=== PATIENT | female | born 1960 | race Caucasian/White ===

== ENCOUNTER 2020-08-15 06:46 | Outpatient (CLI) | payer OTHER, SELFPAY ==
--- NOTE | 2020-08-15 | USCV_ITS ---
Ary Jernigan Age: 59 Gender: F : 1960 Exam Date: 08/15/2020 09:48 Ordering Phys: Albaro Hsu MD Technologist: Donna Krueger [place] [facility] [place]: SHORTNESS OF BREATH BP: 140 / 90 HR: 75 Rhythm: Sinus Technical Quality: Adequate MEASUREMENTS (Male / Female) Normal Values 2D ECHO LV Diastolic Diameter PLAX 3.5 cm 4.2 - 5.9 / 3.9 - 5.3 cm LV Systolic Diameter PLAX 2.4 cm IVS Diastolic Thickness 1.3 cm 0.6 - 1.0 / 0.6 - 0.9 cm IVS Systolic Thickness 1.5 cm LVPW Diastolic Thickness 0.9 cm 0.6 - 1.0 / 0.6 - 0.9 cm LVPW Systolic Thickness 1.3 cm RV Chamber Size 2.3 cm LVOT Diameter 2.0 cm LV Ejection Fraction 2D Teich 63.2 % LV Ejection Fraction MOD 2C 65.2 % LV Ejection Fraction 2C AL 66.5 % LA Diameter 3.0 cm LA Width 2.3 cm LA Height 4.1 cm RA Width 2.8 cm RA Height 3.6 cm Aorta at Sinotubular Diameter 2.6 cm M-MODE LV Diastolic Diameter MM 3.9 cm 4.2 - 5.9 / 3.9 - 5.3 cm LV Systolic Diameter MM 2.6 cm LV Ejection Fraction MM Teich 61.9 % IVS Diastolic Thickness MM 1.3 cm 0.6 - 1.0 / 0.6 - 0.9 cm IVS Systolic Thickness MM 1.5 cm LVPW Diastolic Thickness MM 0.6 cm 0.6 - 1.0 / 0.6 - 0.9 cm LVPW Systolic Thickness MM 1.3 cm Aortic Annulus Diameter 2.5 cm LA Ao Ratio MM 1.1 MV E Point Septal Separation 0.4 cm DOPPLER AV Peak Velocity 129.0 cm/s LVOT Peak Velocity 90.0 cm/s AV Area Cont Eq vti 2.2 cm squared AV Area Cont Eq pk 2.2 cm squared MV Area PHT 5.0 cm squared Mitral E to A Ratio 0.8 MV E' Velocity 37.0 cm/s Mitral E to MV E' Ratio 11.2 Mitral E to LV E' Lateral Ratio 9.8 Mitral E to LV E' Septal Ratio 13.5 TR Peak Velocity 214.0 cm/s TR Peak Gradient 18.3 mmHg TV Peak E Velocity 43.0 cm/s Right Atrial Pressure 3.0 mmHg Pulmonary Artery Systolic Pressu 21.3 mmHg PV Peak Velocity 104.0 cm/s RV Acceleration Time 0.1 s RV Ejection Time 0.3 s RV AcT/ET 0.4 FINDINGS Left Ventricle Normal left ventricular size and systolic function, EF 64 %. Grade I/IV diastolic dysfunction (abnormal relaxation filling pattern), normal to mildly elevated filling pressures. No regional wall motion abnormalities. Right Ventricle The right ventricle is normal in size and function. Right Atrium The right atrium is normal in size. Left Atrium The left atrium is normal in size. Mitral Valve No gross abnormalities noted Aortic Valve No gross abnormalities noted Tricuspid Valve Trace tricuspid valve regurgitation. Pulmonic Valve Pulmonic valve not well visualized. Pericardium Normal pericardium without effusion. Aorta Normal ascending aorta dimension. CONCLUSIONS Normal left ventricular size and systolic function, EF 64 %. Grade I/IV diastolic dysfunction (abnormal relaxation filling pattern), normal to mildly elevated filling pressures. No regional wall motion abnormalities. Trace tricuspid valve regurgitation. There is no pericardial effusion. There are no intracardiac masses. No previous study is available for comparison. Dr Gregory Mendes MD FAC (Electronically Signed) Final Date: 15 August 2020 19:02 S
[2020-08-15 07:04] VITALS: BMI 28.3
--- NOTE | 2020-08-15 07:07 | NMCV_ITS ---
NM stephanie perf SPECT r/s* [id number] Ary Jernigan Age: 59 Gender: F : 1960 Exam Date: 08/15/2020 08:00 Ordering Phys: Albaro Hsu MD Technologist: YESICA Fam Exam Location: [facility] Indications: SHORTNESS OF BREATH STRESS TEST Please see separate stress test report in [facility] for full findings IMAGE PROTOCOL Rest/Stress 1 Lexiscan Day Radiopharmaceutical Dose (mCi) Administration Site Administered by Rest: Tc-99m 10.8 IV YESICA Clark Sestamibi Stress:Tc-99m 32.5 IV YESICA Fam Sestamifede Rest: 15-Aug-2020 60 Discovery 630 Stress: 15-Aug-2020 30 Discovery 630 0.4mg Lexiscan. Images obtained in supine and prone position. SPECT RESULTS Technical Quality: Excellent Raw Data Analysis: Normal Image Corrections: No attenuation or motion correction applied Summed Stress Score: 3 Summed Rest Score: 0 Summed Difference Score: 3 PERFUSION FINDINGS Small area of fixed apical perfusion defect may be an artifact. Overall perfusion scan appeared to be normal. FUNCTIONAL RESULTS (calculated via Gated SPECT) Stress Image LV EF (%): 78 Stress EDV (mL):60 TID: 0.83 Stress ESV (mL):13 Rest Image LV EF (%): 78 FUNCTIONAL FINDINGS: There is normal left ventricular systolic function. IMPRESSIONS Myocardial perfusion imaging is normal. EKG segment will be documented separately. Vielka Tapia MD (Electronically Signed) Final Date: 15 August 2020 18:48 S
--- NOTE | 2020-08-15 07:07 | ECG_ITS ---
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 The perfusion scan will be documented separately. DATA: Baseline heart rate was 84 beats per minute. Baseline blood pressure was 194/117 millimeters of mercury. Target heart rate was 160. Maximum heart rate achieved was 108. which was 67 % of the predicted target heart rate. Maximum blood pressure was 194/117 millimeters of mercury. The reason for ending the test was completion of the protocol. The patient did not experience any symptoms. ELECTROCARDIOGRAM: BASELINE: Sinus rhythm. Normal axis. Possible old anterior wall myocardial infarction, otherwise no ST-T changes suggestive of ischemia noted. No arrhythmia noted. EXERCISE: After Lexiscan injection, no ST-T changes suggestive of ischemic noted. No arrhythmia noted. CONCLUSION: Please note due to baseline abnormality of the EKG specificity and sensitivity of the EKG portion of LexiScan MIBI stress test will be low 1. EKG not suggestive of ischemia 2. Lexiscan injection unremarkable. Blood pressure response was hypertensive 3. Perfusion scan will be documented separately. Electronically Signed On 08-15-2020 18:45:05 CDT by ISA NICOLE [id number]
[2020-08-15] MEDS: regadenoson 0.4 Mg/5 ml Syringe IVP (08:33)
[2020-08-15 08:52] VITALS: BP 169/108; PULSE 94
== END 2020-08-15 06:47 | disposition home or self-care (01) ==
PROVIDERS: PCP Family Medicine; Visit Provider Internal Medicine Critical Care Medicine
DX: R07.9 Chest pain, unspecified (principal); R06.02 Shortness of breath
CPT/HCPCS: 78452; 93017; 93306; A9500; J2785

== ENCOUNTER 2020-08-18 09:50 | Outpatient (CLI) | payer OTHER, SELFPAY ==
--- NOTE | 2020-08-18 09:57 | XR_ITS ---
WS: [id number] Chest 2 views, 08/18/2020 Clinical Data: Shortness of breath Comparison: None. Findings: No nodules, masses or effusions are seen. The heart is normal. The pulmonary vascularity is not increased. No pneumonia or pneumothorax is seen. The diaphragms are flattened. There are clips i n the right upper quadrant from a cholecystectomy. XR/XR chest 2V* [id number] Impression: Hyperinflation.
[2020-08-21 15:48] LABS: Alternaria Alternata (M6) Ige <0.10 kU/L; Alternaria Class 0; Bermuda Class 0; Bermuda Grass (G2) Ige <0.10 kU/L; Cat Dander (E1) Ige <0.10 kU/L; Cat Dander Class 0; D. Farinae Class 0; Dermatophagoides Class 0; Dermatophagoides Farinae (D2) <0.10 kU/L; Dermatophagoides Pteronyssinus <0.10 kU/L; Dog Dander (E5) Ige <0.10 kU/L; Dog Dander Class 0; Elm (T8) Ige <0.10 kU/L; Elm Class 0; English Plantain (W9) Ige <0.10 kU/L; English Plantain Class 0; House Dust (Greer) (H1) Ige <0.10 kU/L; House Dust (Hollister- Stier) <0.10 kU/L; House Dust Class 0; Immunoglobulin E 86 kU/L (<OR=114); Immunoglobulin E 94 kU/L (<OR=114); Johnson Grass (G10) Ige <0.10 kU/L; Johnson Grass Cl 0; June Grass Class 0; June Grass(Kentucky Blue) (G8) <0.10 kU/L; Lamb'S Quarters (Goose Foot) <0.10 kU/L; Lamb'S Quarters Class 0; Maple (Box Elder) (T1) Ige <0.10 kU/L; Maple Class 0; Meadow Fescue (G4) Ige <0.10 kU/L; Meadow Fescue Class 0; Mucor Racemosus Class 0; Oak (T7) Ige <0.10 kU/L; Oak Class 0; Orchard Grass (Cocksfoot) (G3) <0.10 kU/L; Penicillium Class 0; Penicillium Notatum (M1) Ige <0.10 kU/L; Perennial Rye Grass (G5) Ige <0.10 kU/L; Perennial Rye Grass Class 0; Ragweeed Class 1; Rough Marsh Elder (W16) Ige <0.10 kU/L; Rough Marsh Elder Class 0; Sweet Vernal Class 0; Sweet Vernal Grass (G1) Ige <0.10 kU/L; Timothy Grass (G6) Ige <0.10 kU/L; Timothy Grass Class 0
[2020-08-22 22:23] LABS: Aspergillus Fumigatus, Igg Ab, 38.4 mg/L (<=102)
== END 2020-08-18 09:51 | disposition home or self-care (01) ==
PROVIDERS: PCP Family Medicine; Visit Provider Internal Medicine Critical Care Medicine
DX: R06.02 Shortness of breath (principal)
CPT/HCPCS: 71046; 82785; 86003

== ENCOUNTER 2021-04-25 09:15 | Outpatient (CLI) | payer OTHER, SELFPAY ==
--- NOTE | 2021-04-25 09:30 | XR_ITS ---
WS: [id number] PROCEDURE: XR chest 2V* [id number] CLINICAL INFORMATION: Shortness of breath COMPARISON: 08/14 FINDINGS: Small esophageal hiatal hernia. Heart: Mild cardiomegaly. Lungs: Hyperinflation. No acute pulmonary infiltrates. No focal pneumonia or pleural fluid. Bones: Normal visualized bony structures. Cholecystectomy clips. XR/XR chest 2V* [id number] IMPRESSION: 1. Hyperinflation. No acute pulmonary infiltrates. 2. Small esophageal hiatal hernia.
[2021-04-25 10:35] LABS: Basophils # 0.1 10^3/uL (0.0-0.1); Basophils % 1.1 %; Eosinophils # 0.2 10^3/uL (0.0-0.8); Eosinophils % 2.4 %; Lymphocytes # 1.5 10^3/uL (0.8-4.8); Lymphocytes % 17.8 %; Mean Corpuscular HGB Conc 26.5 g/dL (30.0-36.0); Mean Corpuscular Hemoglobin 16.4 pg (28.0-34.0); Mean Platelet Volume 9.8 fL (7.4-10.4); Monocytes # 0.8 10^3/uL (0.2-0.9); Monocytes % 9.4 %; Neutrophils % 68.9 %; Nucleated Red Blood Cells % 0 %; Platelet Count 540 10^3/cmm (130-400); Red Blood Count 3.05 10^6/uL (4.1-5.3); Red Cell Distribution Width 18.2 % (12.1-15.1); White Blood Count 8.4 10^3/uL (4.0-10.0)
[2021-04-25 10:49] LABS: Hematocrit 18.9 % (37.0-47.0)
[2021-04-25 11:27] LABS: Alanine Aminotransferase 13 U/L (0-33); Albumin Level 4.3 g/dL (3.5-5.2); Alkaline Phosphatase 96 IU/L (35-105); Anion Gap 16.8 (5-19); Aspartate Amino Transferase 18 U/L (0-32); Blood Urea Nitrogen 11 mg/dL (8-23); Calcium 9.3 mg/dL (8.5-10.5); Carbon Dioxide 22 mmol/L (22-29); Chloride 105 mmol/L (98-107); Globulin 3.2 g/dL (1.3-4.6); Glomerular Filtration Rate 85.1 mL/min (90-130); Glucose 122 mg/dL (65-115); Osmolality Calculated 291 mOsm/kg (285-295); Potassium 3.8 mmol/L (3.5-5.1); Sodium 140 mmol/L (136-145); Total Bilirubin 0.6 mg/dL (0.15-1.2); Total Protein 7.5 g/dL (6.6-8.7)
== END 2021-04-25 09:16 | disposition home or self-care (01) ==
LOC: RAD 09:22
PROVIDERS: PCP Family Medicine; Visit Provider Internal Medicine Critical Care Medicine
DX: R06.02 Shortness of breath (principal); K44.9 Diaphragmatic hernia without obstruction or gangrene
CPT/HCPCS: 71046; 80053; 85025

== ENCOUNTER 2021-04-25 14:28 | Observation (INO) | payer OTHER, SELFPAY ==
[2021-04-25] VITALS (16 sets, daily range): BP systolic 104–171; BP diastolic 63–94; PULSE 69–105; RESP 16–20; TEMP 36.6–37.7; O2SAT 93–100; BMI 27.4
--- NOTE | 2021-04-25 15:11 | ED_ITS ---
HPI - General Adult General: Chief complaint: General Medical Stated complaint: PCP sent for low Hemoglobin Time Seen by Provider: 04/25/21 14:51 Source: patient and other (clinic note) Mode of arrival: ambulatory Limitations: no limitations History of Present Illness: See nursing assessment. Patient sent over from clinic due to low hemoglobin. Patient states she has had dizziness and fatigue for the last 2 months. She denies any GI bleed, hematemesis, dysfunctional uterine bleeding or fever. She denies any abdominal pain. She denies any melena. Possible history includes esophageal stricture which required dilation x2 in the past. She has asthma and was following up with her secure software assessor that carmela her CBC. Medications include Prilosec and an inhaler for asthma. She does not use NSAIDs or aspirin. She is not on any blood thinners. Past surgical history includes tonsillectomy, C-sections x2, bilateral tubal ligation, breast augmentation, esophageal dilation x2. She denies smoking or tobacco use. She denies alcohol use. MD complaint: Dizziness, fatigue Severity: mild Relieving factors: none Exacerbating factors: none Associated symptoms: Reports malaise and other (Fatigue, dizziness); Deny chest pain, confusion, cough, diaphoresis, decreased appetite, dyspnea, fevers/chills, headache(s), nausea, rash, palpitations, seizures, short of breath, syncope, vomiting or weakness Review of Systems Const: Reports: fatigue and malaise; Denies: fever(s), body aches or diaphoresis Eyes: Denies: change in vision ENMT: Denies: throat pain Card: Denies: chest pain, palpitations or syncope Resp: Denies: dyspnea GI: Denies: abdominal pain, nausea, vomiting, hematochezia or melena : Denies: flank pain Musc: Denies: neck pain, back pain or extremity pain Skin/Breast: Denies: rash, pruritus or erythema Neuro: Denies: headache(s), numbness in extremities, weakness in extremities or confusion Psych: Denies: anxiety José/Lymph: Denies: easy bruising, easy bleeding, petechiae or enlarged lymph nodes [facility] ED PFSH: Medical History Hiatal hernia Surgical History H/O blepharoplasty H/O breast augmentation H/O tubal ligation History of cholecystectomy Hx of tonsillectomy Status post dilatation of esophageal stricture Family History Mother Cancer, Onset Age: 70 Breast Diabetes Social History Smoking and tobacco status: never smoked Second hand smoke exposure: No Smoking risk assessment/counseling performed?: No Alcohol intake: current Alcohol intake frequency: holidays/special occasions only Counseling given: No Counseling given: No Lives independently: Yes Household members: spouse Marital status: Current occupational status: employed History of recent travel: No Current gender identity: Female Physical Exam Const: COMMON NORMALS: no acute distress, patient oriented x3, no limitations and well nourished GENERAL APPEARANCE: cooperative HENMT: COMMON NORMALS: normocephalic and atraumatic HEAD & SCALP: normocephalic and atraumatic FACE & SINUS: normal facial exam Eye: COMMON NORMALS: EOMs intact bilaterally Neck/C-Spine: COMMON NORMALS: full ROM, no lymphadenopathy, supple and no meningeal signs GENERAL: Yes normal visual inspection Lymph: LYMPHATIC: no lymphadenopathy noted Chest: COMMONS NORMALS: normal inspection of the chest and normal palpation of entire chest wall CHEST: No Ecchymosis present and No rash Resp: COMMON NORMALS: normal respiratory effort, No retractions and clear to auscultation bilaterally EFFORT & INSPECTION: No respiratory distress AUSCULTATION: clear to auscultation bilaterally Cardio: COMMON NORMALS: regular rate, regular rhythm and Peripheral pulses 2+ throughout JUGULAR VENOUS DISTENTION: no JVD RATE: regular rate RHYTHM: regular rhythm PERIPHERAL PULSES: Peripheral pulses 2+ throughout GI: COMMON NORMALS: Normal to inspection, nondistended, normoactive bowel sounds present and non-tender : COMMON NORMALS: Yes no CVA tenderness BLADDER/KIDNEY EXAM: Yes no CVA tenderness OTHER: Rectal exam with female nurse showed normal anus. No hemorrhoids. Minimal stool in the vault with normal color the stool. Hemoccult was positive for blood Back/Pelvis: COMMON NORMALS: no CVA tenderness Extremity: COMMON NORMALS: normal to inspection, full ROM and capillary refill normal Neuro: COMMON NORMALS: patient oriented x3, CN's II-XII intact bilaterally, no focal motor deficits and no sensory deficits noted MENINGEAL SIGNS: Yes no meningeal signs Psych: COMMON NORMALS: mental status grossly normal and Normal thought process present THOUGHT PROCESS: Normal thought process present Skin: COMMON NORMALS: no rashes or lesions noted and no wounds GENERAL SKIN EXAM: no rashes or lesions noted Course Reevaluation(s): Additional Reevaluation(s): 151: Discussed with hospitalist Dr. Ba. Observation. Asked for consult of GI for endoscopy. 1517: Discussed with surgeon/welding manager. DR. Hill. 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 Vital Signs: Vital signs: Vital Signs Temperature 98.1 F 04/25/21 14:46 Pulse Rate 105 H 04/25/21 14:46 Respiratory Rate 18 04/25/21 14:46 Blood Pressure 171/94 04/25/21 14:46 Pulse Oximetry 99 04/25/21 14:46 MDM - General Adult Medical Decision Making Gastrointestinal bleeding, chronic anemia Lab Data I reviewed the patient's lab results. Patient had CBC drawn today with a white blood cell count 8.4 hemoglobin 5.0 hematocrit 18.9 MCV 62 MCH 16 MCV HC 26.5 RDW 18.2 platelet count 540,000 : 04/25/21 15:09 See lab results from earlier today at 10:15 AM from clinic. Critical Care Time Critical Care Time: Critical Care Time: Yes (35) Total Critical Care Time: 35 Attestation: Blood transfusion ordered. Consultation with welding manager. Consultation with hospitalist. Discharge Plan Discharge Patient Disposition: Placed in Observation Clinical Impression: Symptomatic anemia, Dizziness Gastrointestinal bleeding Qualifiers: GI bleed type/associated pathology: unspecified gastrointestinal hemorrhage type Qualified Code(s): K92.2 - Gastrointestinal hemorrhage, unspecified Coding Level of Care Code ED Rehabilitation Medicine Physician for Chg Fwd Exam Comprehensive
[2021-04-25 16:00] LABS: Hematocrit 18.4 % (37.0-47.0); Hemoglobin 4.8 g/dL (11.5-15.3)
[2021-04-25 16:42] LABS: Ferritin 5 ng/mL (15-150); Iron 10 ug/dL (37-145); Iron 12 ug/dL (37-145); Percent Saturation 2.7 % (20-50); Total Iron Binding Capacity 369 mcg/dl; Unsaturated Iron Binding 359 ug/dL (112-347)
--- NOTE | 2021-04-25 17:20 | PM.CONSULT ---
Providers/Reason For Consult Consulting Physician/Specialty*: Solomon Hill MD Reason for Consult*: Severe anemia in the presence of occult blood positive in stool Requesting Physician: ER Dr. Rosales Attending Physician: Dr. Ba Primary Care Provider: Javed Courtney MD History of Present Illness History of Present Illness Chief Complaint: Lightheadedness and dizzy History of present illness: Ms. Ary Jernigan is a pleasant 60 year old female with unremarkable medical history except for some shortness of breath and bronchial asthma. Currently the patient over the past 3 months has been complaining of lightheadedness and dizziness and recently undergone blood work and showed severe anemia and was sent to the emergency department for further work-up, patient was for him to have hemoglobin of 4.8, platelet count of 540, normal liver function tests. Patient denies history of colonoscopies before but she does report that she had a previous esophageal dilation for esophageal stricture last one was done back in 2019 in [facility]. Patient denies any hemoptysis ,hematemesis,vaginal bleeding or hematochezia, but she was found to have occult blood positive in stool in the emergency department. Currently she is receiving blood transfusion in the ER and general surgery was consulted due to the occult blood positive in stool for potential further work-up and potential intervention. Patient reports history of x2 Patient currently is in the ER room #12 for I did examine her and she seems to be comfortable receiving blood with stable vital signs. Review of Systems General: Reports: 10 or more systems reviewed and unremarkable except in HPI and below Medications/Allergies Home Medications Medication Instructions Recorded Confirmed Last Taken Type omeprazole magnesium 20 mg 20 mg PO [facility] 07/04/20 04/25/21 04/24/21 History tablet,delayed release (Prilosec OTC) fluticasone furoate 100 1 inh INHALATION DAILY #180 ea 11/29/20 04/25/21 04/24/21 Rx mcg-vilanterol 25 mcg/dose inhalation powder (Breo Ellipta) ascorbic acid (vitamin C) 100 mg 100 mg PO DAILY #90 tab 04/26/21 Unknown Rx tablet (Vitamin C) cyanocobalamin (vitamin B-12) 1,000 mcg PO DAILY #30 cap 04/26/21 Unknown Rx 1,000 mcg capsule ferrous sulfate 325 mg (65 mg 325 mg PO DAILY #90 tab 04/26/21 Unknown Rx iron) tablet (Iron (ferrous sulfate)) folic acid 1 mg tablet 1 mg PO DAILY #60 tab 04/26/21 Unknown Rx Allergies Allergy/AdvReac Type Severity Reaction Status Date / Time No Known Allergies Allergy Verified 04/25/21 17:23 PFSH Acute PFSH: Medical History Hiatal hernia Surgical History H/O blepharoplasty H/O breast augmentation H/O tubal ligation History of cholecystectomy Hx of tonsillectomy Status post dilatation of esophageal stricture Family History Mother Cancer, Onset Age: 70 Breast Diabetes Social History Smoking and tobacco status: never smoked Second hand smoke exposure: No Smoking risk assessment/counseling performed?: No Alcohol intake: current Alcohol intake frequency: holidays/special occasions only Counseling given: No Counseling given: No Lives independently: Yes Household members: spouse Marital status: Current occupational status: employed History of recent travel: No Current gender identity: Female Vitals/I&O/Wt Last Vital Signs Temp 97.9 F 04/25/21 16:59 Pulse 93 04/25/21 16:59 Resp 20 H 04/25/21 16:59 BP 131/74 04/25/21 16:59 Pulse Ox 100 04/25/21 16:59 04/25/21 04/25/21 04/25/21 06:59 14:59 22:59 Intake Total 0 / 0 Balance 0 / 0 Weight last 48 hrs Weight 136 lb Physical Exam Const: COMMON NORMALS: no acute distress and patient oriented x3 GENERAL APPEARANCE: cooperative ORIENTATION/CONSCIOUSNESS: Yes awake, Yes oriented to person, Yes oriented to place and Yes oriented to time HENMT: COMMON NORMALS: normocephalic HEAD & SCALP: normocephalic Eye: COMMON NORMALS: Equal, round and reactive pupils present and no scleral icterus PUPIL: Yes Equal, round and reactive pupils present Lymph: LYMPHATIC: no lymphadenopathy noted Chest: COMMONS NORMALS: normal inspection of the chest Resp: COMMON NORMALS: normal respiratory effort and clear to auscultation bilaterally AUSCULTATION: clear to auscultation bilaterally Cardio: COMMON NORMALS: S1 normal heart sound present and S2 normal heart sound present; negative for No murmurs present (Cardio) HEART SOUNDS: S1 normal heart sound present and S2 normal heart sound present GI: COMMON NORMALS: Soft to palpation; negative for No hepatosplenomegaly present INSPECTION: No normal to inspection (Lower midline scar) PALPATION: Yes Soft to palpation, No Firmness to palpation present (GI), No Tenderness to palpation present (GI), No Guarding due to palpation present (GI), No Rigid due to palpation and No No hepatosplenomegaly present Neuro: COMMON NORMALS: patient oriented x3 SENSORIUM/ORIENTATION: Yes oriented to person, Yes oriented to place and Yes oriented to time Psych: COMMON NORMALS: mental status grossly normal Skin: COMMON NORMALS: no rashes or lesions noted GENERAL SKIN EXAM: no rashes or lesions noted Data : 04/26/21 04:26 04/26/21 04:26 A&P Assessment and plan (1) Occult blood positive stool: After history taking physical examination and reviewing the chart. Likely the patient would benefit from diagnostic EGD and colonoscopy at some point. I do not see an acute indication for intervention. We will continue to follow on the patient clinical progress and coordinate care with the hospitalist service. After appropriate resuscitation blood transfusion we may entertain EGD and colonoscopy during the same hospitalization. Otherwise can be done as an outpatient with follow-up with me at my office. Assurance and education All questions have been answered and all concerns have been addressed to patient's satisfaction. Status: Resolved Consult Attestations Medical Necessity Statement: Per admitting service Coding Level of Care Code Acute Certified Scrum Master for Chg Fwd Exam Comprehensive Diagnoses Occult blood positive stool R19.5
[2021-04-25] MEDS: sodium chloride 0.9% 100 mL Bag 50 ML IV (17:24)
--- NOTE | 2021-04-25 18:56 | PM.HP ---
Providers/Chief Complaint Admitting Physician: Vielka Ba MD Primary Care Provider: Javed Courtney MD Chief Complaint: PCP sent for low Hemoglobin History of Present Illness Ary Jernigan is a 60 year old female was sent from the pulmonary medicine clinic for abnormal lab hemoglobin 4.8. Patient is stating that she has not noticed any active bleeding. She has history of esophageal dilation denies regurgitation of food and previous history of adenomatous anemia. She takes Prilosec on daily basis. Denies hematochezia, hemoptysis, dark stools. No family history of colon cancer. Never had colonoscopy before. She has never been diagnosed with Austin-Chao syndrome. For last 3 months she has been experiencing fatigue lethargy and exertional shortness of breath. No active chest pain. In the ER she was started on blood transfusion, I have requested iron panel, Dr. Hill has been consulted, patient is leaning towards following up with her edging machine operator back in [place] who did previous endoscopies. She is hemodynamically stable, iron panel consistent with severe iron deficiency anemia We will start IV iron Review of Systems Const: Reports: chills, body aches, fatigue and malaise Eyes: Denies: change in vision ENMT: Denies: throat pain Card: Reports: dyspnea on exertion; Denies: chest pain Resp: Reports: dyspnea GI: Denies: abdominal pain : Denies: flank pain Musc: Denies: neck pain Skin/Breast: Denies: rash Neuro: Denies: headache(s) Psych: Denies: anxiety Endo: Denies: polyuria José/Lymph: Denies: easy bruising All/Imm: Denies: urticaria Medications/Allergies Home Medications Medication Instructions Recorded Confirmed Last Taken Type omeprazole magnesium 20 mg 20 mg PO [facility] 07/04/20 04/25/21 04/24/21 History tablet,delayed release (Prilosec OTC) fluticasone furoate 100 1 inh INHALATION DAILY #180 ea 11/29/20 04/25/21 04/24/21 Rx mcg-vilanterol 25 mcg/dose inhalation powder (Breo Ellipta) Allergies Allergy/AdvReac Type Severity Reaction Status Date / Time No Known Allergies Allergy Verified 04/25/21 17:23 PFSH Acute PFSH: Medical History Hiatal hernia Surgical History H/O blepharoplasty H/O breast augmentation H/O tubal ligation History of cholecystectomy Hx of tonsillectomy Status post dilatation of esophageal stricture Family History Mother Cancer, Onset Age: 70 Breast Diabetes Social History Smoking and tobacco status: never smoked Second hand smoke exposure: No Smoking risk assessment/counseling performed?: No Alcohol intake: current Alcohol intake frequency: holidays/special occasions only Counseling given: No Counseling given: No Lives independently: Yes Household members: spouse Marital status: Current occupational status: employed History of recent travel: No Current gender identity: Female Vitals/I&O/Wt Last Vital Signs Temp 97.9 F 04/25/21 18:19 Pulse 90 04/25/21 18:19 Resp 18 04/25/21 18:19 BP 104/71 04/25/21 18:19 Pulse Ox 100 04/25/21 18:19 04/25/21 04/25/21 04/25/21 06:59 14:59 22:59 Intake Total 0 / 0 Balance 0 / 0 Weight last 48 hrs Weight 61.689 kg Physical Exam Narrative: Middle-age female Very pleasant Cooperative Saturating well on room air Hemodynamically stable Awake and alert Abdomen soft No signs of edema or dehydration She was getting blood transfusion Not in acute distress Appropriate mood and affect Data : 04/25/21 15:09 A&P Assessment and plan (1) Occult blood positive stool: Status: Acute (2) Symptomatic anemia: Status: Acute (3) Dizziness: Status: Acute (4) Asthma: Status: Acute (5) Shortness of Breath: Status: Acute Plan Previous history of esophageal stricture requiring dilatation My concern is for Meryl-Chao syndrome Iron panel consistent with severe iron deficiency anemia, check B12 level, FOBT positive Start IV iron Finished blood transfusion today Keep her on clear liquids Protonix 40 milligrams twice daily SCDs for DVT prophylaxis Full code Patient is leaning towards following up with her edging machine operator for EGD and colonoscopy back in [place] Appreciate general surgery recommendations Attestations Medical Necessity Statement*: Less than 2 midnights anticipated Time Spent in Patient Care: 40mins Coding Level of Care Code Acute Clinical Nursing Director for Chg Fwd Diagnoses Occult blood positive stool R19.5 Symptomatic anemia D64.9 Dizziness R42 Asthma J45.909 Shortness of Breath R06.02
[2021-04-25 21:00] LABS: Thyroid Stimulating Hormone 1.12 uIU/mL (0.27-4.20); Vitamin B12 326 pg/mL (232-1245)
[2021-04-25] MEDS: ferric carboxy (IVPB) 750 MG in sodium chloride 0.9% (100 ml) 100 ML 345 MG IV (22:12)
[2021-04-26 05:07] LABS: Basophils # 0.1 10^3/uL (0.0-0.1); Basophils % 0.9 %; Eosinophils # 0.2 10^3/uL (0.0-0.8); Eosinophils % 2.4 %; Hematocrit 27.5 % (37.0-47.0); Hemoglobin 8.1 g/dL (11.5-15.3); Lymphocytes # 1.3 10^3/uL (0.8-4.8); Mean Corpuscular HGB Conc 29.5 g/dL (30.0-36.0); Mean Corpuscular Hemoglobin 20.4 pg (28.0-34.0); Mean Corpuscular Volume 69.1 fl (81-99); Monocytes # 0.7 10^3/uL (0.2-0.9); Monocytes % 10.5 %; Neutrophils % 66.8 %; Nucleated Red Blood Cells % 0 %; Platelet Count 479 10^3/cmm (130-400); Red Blood Count 3.98 10^6/uL (4.1-5.3)
[2021-04-26 05:10] VITALS: BP 126/70; PULSE 86; RESP 18; TEMP 36.6; O2SAT 94
[2021-04-26 06:03] LABS: Alanine Aminotransferase 11 U/L (0-33); Albumin Level 3.9 g/dL (3.5-5.2); Alkaline Phosphatase 89 IU/L (35-105); Aspartate Amino Transferase 18 U/L (0-32); Blood Urea Nitrogen 8 mg/dL (8-23); Calcium 8.4 mg/dL (8.5-10.5); Carbon Dioxide 23 mmol/L (22-29); Chloride 108 mmol/L (98-107); Globulin 2.8 g/dL (1.3-4.6); Glomerular Filtration Rate 101.6 mL/min (90-130); Glucose 99 mg/dL (65-115); Osmolality Calculated 292 mOsm/kg (285-295); Phosphorus 3.5 mg/dL (2.5-4.5); Sodium 142 mmol/L (136-145); Total Bilirubin 1.5 mg/dL (0.15-1.2); Total Protein 6.7 g/dL (6.6-8.7)
[2021-04-26 06:06] LABS: Anion Gap 15.6 (5-19); Lactate Dehydrogenase 227 U/L (135-214); Potassium 4.6 mmol/L (3.5-5.1)
[2021-04-26] MEDS: pantoprazole 40 mg SDV IVP (08:27)
--- NOTE | 2021-04-26 09:47 | P.DS_ITS ---
Discharge Providers Date of Admission: 04/25/21 15:28 Date of Discharge: April 26, 2021 Attending Provider at Admission: Vielka Ba MD Attending Provider at Discharge: Vielka Ba MD Primary Care Provider: Javed Courtney MD Diagnoses at Discharge Discharge Diagnosis (1) Occult blood positive stool: Status: Acute (2) Symptomatic anemia: Status: Acute (3) Dizziness: Status: Acute (4) Asthma: Status: Acute (5) Shortness of Breath: Status: Acute Reason for Visit Reason for Visit: PCP sent for low Hemoglobin Hospital Course Hospital Course 1-year-old female who presented to hospital with chief complaint of worsening exertional shortness of breath fatigue and lethargy. She never experienced any hemoptysis hematochezia, nocturnal fever, weight loss, melanotic stools. No family history of colon cancer, thalassemia. Her CBC at pulmonary medicine clinic revealed hemoglobin of 4.8. She was directed to the ER. She received 2 units of PRBC. She remained hemodynamically stable. No signs of hepatosplenomegaly. She does carry history of esophageal strictures requiring dilatation twice in the past. Her rotational moulding operator is in [place]. She prefers to have an EGD and colonoscopy by her rotational moulding operator. Dr. Hill did evaluate her in the ER. She was FOBT positive. My differential diagnosisis related to Meryl Vincent syndrome and thalassemia. Her iron is extremely low, she did receive Injectafer 1 dose here after 2 units PRBC. Next dose will be given after 7 days. I will give her prescription for phosphate level check as well. Patient is clinically stable, no signs of hemodynamic compromise. She is wanting to follow-up with her rotational moulding operator. I will discharge her with prescription for CBC, phosphorus level check. Iron infusion after 1 week. She will get iron on daily basis along vitamin C. Physical Exam Narrative: Patient is hemodynamically stable S1, S2 Abdomen soft No hepatosplenomegaly No vascular compromise of legs Nonfocal neuro exam Saturating well on room air Appropriate mood and affect Discharge Data Studies Completed and Pending Pending at discharge Category Date Time Status Direct [place] Routine Lab 04/26/21 07:35 Ordered Laboratory Results WBC 7.0 10^3/uL (4.0-10.0) 04/26/21 04:26 RBC 3.98 10^6/uL (4.1-5.3) L 04/26/21 04:26 Hgb 8.1 g/dL (11.5-15.3) L D 04/26/21 04:26 Hct 27.5 % (37.0-47.0) L D 04/26/21 04:26 MCV 69.1 fl (81-99) L D 04/26/21 04:26 MCH 20.4 pg (28.0-34.0) L D 04/26/21 04:26 MCHC 29.5 g/dL (30.0-36.0) L D 04/26/21 04:26 RDW 25.0 % (12.1-15.1) H 04/26/21 04:26 Plt Count 479 10^3/cmm (130-400) H 04/26/21 04:26 MPV 10.0 fL (7.4-10.4) 04/26/21 04:26 Neut % (Auto) 66.8 % 04/26/21 04:26 Lymph % (Auto) 19.0 % 04/26/21 04:26 [place] % (Auto) 10.5 % 04/26/21 04:26 Eos % (Auto) 2.4 % 04/26/21 04:26 Baso % (Auto) 0.9 % 04/26/21 04:26 Neut # (Auto) 4.70 10^3/uL (1.8-7.7) 04/26/21 04:26 Lymph # (Auto) 1.3 10^3/uL (0.8-4.8) 04/26/21 04:26 [place] # (Auto) 0.7 10^3/uL (0.2-0.9) 04/26/21 04:26 Eos # (Auto) 0.2 10^3/uL (0.0-0.8) 04/26/21 04:26 Baso # (Auto) 0.1 10^3/uL (0.0-0.1) 04/26/21 04:26 Nucleated RBC % (auto) 0 % 04/26/21 04:26 Nucleated RBCs # 0.0 /100WBC 04/26/21 04:26 Haptoglobin 154.0 mg/L (30-200) 04/25/21 16:00 Sodium 142 mmol/L (136-145) 04/26/21 04:26 Potassium 4.6 mmol/L (3.5-5.1) 04/26/21 04:26 Chloride 108 mmol/L (98-107) H 04/26/21 04:26 Carbon Dioxide 23 mmol/L (22-29) 04/26/21 04:26 Anion Gap 15.6 (5-19) 04/26/21 04:26 BUN 8 mg/dL (8-23) 04/26/21 04:26 Creatinine 0.6 mg/dL (0.5-0.9) 04/26/21 04:26 GFR Calculation 101.6 mL/min (90-130) 04/26/21 04:26 Glucose 99 mg/dL (65-115) 04/26/21 04:26 Calculated Osmolality 292 mOsm/kg (285-295) 04/26/21 04:26 Calcium 8.4 mg/dL (8.5-10.5) L 04/26/21 04:26 Phosphorus 3.5 mg/dL (2.5-4.5) 04/26/21 04:26 Iron 10 ug/dL (37-145) L 04/25/21 16:00 Iron 12 ug/dL (37-145) L 04/25/21 16:00 TIBC 369 mcg/dl 04/25/21 16:00 % Saturation 2.7 % (20-50) L 04/25/21 16:00 Unsat Iron Binding 359 ug/dL (112-347) H 04/25/21 16:00 Ferritin 5 ng/mL (15-150) L 04/25/21 16:00 Total Bilirubin 1.5 mg/dL (0.15-1.2) H 04/26/21 04:26 Total Bilirubin Cancelled 04/26/21 04:26 AST 18 U/L (0-32) 04/26/21 04:26 ALT 11 U/L (0-33) 04/26/21 04:26 Alkaline Phosphatase 89 IU/L (35-105) 04/26/21 04:26 Lactate Dehydrogenase 227 U/L (135-214) H 04/26/21 04:26 Total Protein 6.7 g/dL (6.6-8.7) 04/26/21 04:26 Albumin 3.9 g/dL (3.5-5.2) 04/26/21 04:26 Globulin 2.8 g/dL (1.3-4.6) 04/26/21 04:26 Vitamin B12 326 pg/mL (232-1245) 04/25/21 16:00 TSH 1.12 uIU/mL (0.27-4.20) 04/25/21 16:00 Blood Type A Positive 04/25/21 15:09 Rho(D) Type Positive 04/25/21 15:09 Antibody Screen Negative 04/25/21 15:09 Crossmatch See Detail 04/25/21 15:09 Vitals Last Vital Signs Temp 97.9 F 04/26/21 05:10 Pulse 86 04/26/21 05:10 Resp 18 04/26/21 05:10 BP 126/70 04/26/21 05:10 Pulse Ox 94 04/26/21 05:10 Discharge Plan Discharge Patient Disposition: Home Condition: Stable Prescriptions: New Iron (ferrous sulfate) 325 mg (65 mg iron) tablet 325 mg PO DAILY Qty: 90 3RF Vitamin C 100 mg tablet 100 mg PO DAILY Qty: 90 0RF Injectafer 50 iron mg/mL solution 750 mg IV Q7D 1 Days Qty: 15 0RF Continued omeprazole magnesium [Prilosec OTC] 20 mg tablet,delayed release (DR/EC) 20 mg PO QAM 0RF Breo Ellipta 100-25 mcg/dose blister with device 1 inh inhalation DAILY Qty: 180 3RF Discharge Orders: Discharge Order (Routine); Ordered 04/26/21 Ordered By: Vielka Ba Other Ambulatory Orders: Complete Blood Count w/Auto (Routine) Timeframe: 3 Days Location: Determined by Patient Ordered By: Vielka Ba Phosphorus (Routine) Timeframe: 3 Days Facility: [facility] - Location: Lab - Main Lab Ordered By: Vielka Ba Phosphorus (Routine) Timeframe: 3 Days Facility: [facility] - Location: Lab - Main Lab Ordered By: Vielka Ba Referrals: Javed Courtney MD [Primary Care Provider] - 04/30/21 11:10 am Discharge Diet: Regular Discharge Activity: Increase activity as tolerated Patient Instructions: Anemia, Iron Supplements (By mouth), Ferric Carboxymaltose (By injection) (Injectafer), Ferric Carboxymaltose (By injection), Gastrointestinal Bleeding (DC), Shortness of Breath (DC), Opioid Safety Discharge Attestations Time Spent in Discharge Care*: less than 30 min Quality Metrics Clinical Quality Measures [ No reported AMI, CVA or VTE this stay] Coding Level of Care Code Acute Chg FW DC note Diagnoses Occult blood positive stool R19.5 Symptomatic anemia D64.9 Dizziness R42 Asthma J45.909 Shortness of Breath R06.02
--- NOTE | 2021-04-26 11:23 | PC.CHAP ---
Pastoral Care Encounter/Spiritual Assessment Type of Contact [] Declined sales team manager visit [] Patient/Family/Request visit [] Outpatient visit [] Follow-up visit [] Physician referral [] Code/Alert [x] Routine visit [] Staff referral [] Actively dying [] Patient sleeping [] Family support [] [] Out of room [] Palliative care [] [x] Receiving care in room [] Pre-surgical visit [] Trauma [] Long length of stay [] ICU visit [] Other: Relational/Emotional Strength [x] Patient feels connected with others/family/visitors/staff [] Distress [] Loneliness/isolation [] Abandonment Spirituality of Patient [x] Person of [place]reen [] Attends Adventism of their [place] [x] Believes in Prayer [] Reads Bible or Latter Day materials [] There are Spiritual issues to be addressed [employer] Associate Interventions [x] Prayer [x] Active listening [x] Non-anxious presence [x] Spiritual/emotional support [] Crisis/trauma care [x] Spiritual counseling [] Bereavement support [] Provided bereavement packet [] Provided Bible/devotional materials [] Provided toy/stuffed animal, coloring book to patient or family member [] Provided Communion [] Anointing/[place] [] Salvation [x] Completed spiritual assessment [] Other: Impact on Illness or Injury [] Angry [] Fearful [x] Anxious [] Often cries [] Exhaustion [] Unable to work [] Unable to attend druze [] Unable to walk/stand [] Unable to read [] Unable to drive [] Unable to eat/drink [] Unable to sleep [] Unable to be with family [] Patient intubated [] Other: Summary low blood on [facility]odics feeling better will go home soon Time spent with patient 10 mins
--- NOTE | 2021-04-26 12:22 | PC.NURSE ---
Discharge Note Patient discharged home via private vehicle. Discharge instructions reviewed with patient and/or parts sales representative. Mobile pharmacy medications and/or prescriptions provided. Belongings/home medications returned. Educated patient on following up with outpatient infusion.
[2021-04-26 12:24] VITALS: BP 126/70; PULSE 86; RESP 18; TEMP 36.6; O2SAT 94
== END 2021-04-26 12:24 | disposition home or self-care (01) ==
LOC: ER 15:26 → MEDSURG 18:48
PROVIDERS: Emergency Medicine; Admitting Provider Internal Medicine; Emergency Provider Family Medicine; PCP Family Medicine; Visit Provider Internal Medicine
DX: R19.5 Other fecal abnormalities (principal); D64.9 Anemia, unspecified; R42 Dizziness and giddiness; J45.909 Unspecified asthma, uncomplicated; R06.02 Shortness of breath; K92.2 Gastrointestinal hemorrhage, unspecified
CPT/HCPCS: 36415; 36430; 80053; 82607; 82728; 83010; 83540; 83550; 83615; 84100; 84443; 85014; 85018; 85025; 86850; 86880; 86900; 86920; 96365; 96375; 99285; C9113; G0378; J1439; P9016

== ENCOUNTER → 2021-06-25 08:21 | Outpatient (BNVA) | payer OTHER, SELFPAY | PROVIDERS: PCP Family Medicine; Visit Provider Family Medicine | DX: D64.9 Anemia, unspecified (principal) | CPT/HCPCS: 85025 ==

== ENCOUNTER → 2021-07-25 08:45 | Outpatient (BNVA) | payer OTHER, SELFPAY | PROVIDERS: PCP Family Medicine; Visit Provider Family Medicine | DX: D64.9 Anemia, unspecified (principal) | CPT/HCPCS: 85025 ==

== ENCOUNTER → 2021-10-01 09:20 | Outpatient (BNVA) | payer BC, SELFPAY | PROVIDERS: PCP Family Medicine; Visit Provider Internal Medicine Critical Care Medicine | DX: D50.9 Iron deficiency anemia, unspecified (principal); J45.909 Unspecified asthma, uncomplicated; L42 Pityriasis rosea | CPT/HCPCS: 36415; 82728; 83540; 83550; 85025 ==

== ENCOUNTER → 2022-02-01 08:55 | Outpatient (BNVA) | payer BC, SELFPAY | PROVIDERS: PCP Family Medicine; Visit Provider Family Medicine | DX: D50.9 Iron deficiency anemia, unspecified (principal) | CPT/HCPCS: 83540; 85025 ==

== ENCOUNTER → 2022-07-05 10:15 | Outpatient (BNVA) | payer BC, SELFPAY | PROVIDERS: PCP Family Medicine; Visit Provider Family Medicine | DX: Z00.00 Encounter for general adult medical examination without abnormal findings (principal); D50.9 Iron deficiency anemia, unspecified | CPT/HCPCS: 80053; 80061; 85025 ==

== ENCOUNTER 2022-09-16 12:12 | Outpatient (CLI) | payer BC, SELFPAY | END 2022-09-16 12:13 | disposition home or self-care (01) | PROVIDERS: PCP Family Medicine; Visit Provider Internal Medicine Medical Oncology | DX: D50.9 Iron deficiency anemia, unspecified (principal) | CPT/HCPCS: 82274 ==